=== PATIENT | male | born 1960 | race Caucasian/White ===

== ENCOUNTER 2017-08-11 17:45 | Emergency (ER) | payer OTHER ==
[~2017-08-11] VITALS: Ht 190.5 cm; Wt 89.8 kg
[2017-08-11] MEDS ORDERED: DEXILANT30 MG PO (17:56)
[2017-08-11 18:54] LABS: INFLUENZA A ANTIGEN None Detected (None Detect); INFLUENZA B ANTIGEN None Detected (None Detect)
[2017-08-11] MEDS ORDERED: ACETAMINOPHEN-1 EAC1 PO (19:00)
[2017-08-11] MEDS ORDERED: TESSALON PERLE100 MG PO (19:00)
[2017-08-11] MEDS ORDERED: ZPAK PO (19:00)
[2017-08-11] MEDS ORDERED: PROMETHAZINE V473 ML PO (19:00)
[2017-08-11] MEDS ORDERED: PROAIR HFA8.5 GM INH (19:00)
[2017-08-11] MEDS ORDERED: PHENERGAN 25 MG25 M1 PO (19:01)
[2017-08-11 19:16] VITALS: BP 114/80
== END 2017-08-11 19:18 | disposition home or self-care (01) ==
LOC: M.ERS 17:45
PROVIDERS: Physician Assistant
DX: J20.9 Acute bronchitis, unspecified (principal); K21.9 Gastro-esophageal reflux disease without esophagitis